=== PATIENT | male | born 1990 | race Two or more races ===

== ENCOUNTER 2020-09-21 12:47 | Outpatient (REF) | payer OTHER, SELFPAY ==
[2020-09-21 13:49] LABS: MANUAL DIFF FLAG NO
[2020-09-21 13:54] LABS: Basophils Percent Auto 0.5 % (0-2); Eosinophils Absolute Auto 0.1 X10*3/uL (0.0-0.4); Eosinophils Percent Auto 0.6 % (0-4); Hemoglobin 14.8 g/dl (14.0-18.0); Imm Gran Abs Auto 0.03 X10*3/uL (0.00-0.03); Imm Gran Pct Auto 0.3 % (0.0-0.4); Lymphocytes Absolute Auto 1.5 X10*3/uL (1.2-4.9); Lymphocytes Percent Auto 17.2 % (20-40); Mean Corpuscular HGB Conc 32.2 g/dl (31.0-36.0); Mean Corpuscular Hemoglobin 27.2 pg (27.0-33.0); Mean Corpuscular Volume 84.6 fL (80-98); Mean Platelet Volume 10.3 fL (9.4-12.4); Monocytes Absolute Auto 0.4 X10*3/uL (0.1-1.2); Neutrophils Absolute Auto 6.8 X10*3/uL (2.0-8.3); Neutrophils Percent Auto 76.4 % (45-73); Platelet Count 318 X10*3/uL (160-400); Red Blood Count 5.44 X10*6/uL (4.60-5.80); White Blood Count 8.8 X10*3/uL (4.8-10.8)
[2020-09-21 14:19] LABS: Alanine Aminotransferase 24 U/L (0-40); Albumin Level 4.5 g/dL (3.5-5.0); Alkaline Phosphatase 84 U/L (39-117); Amylase 37 U/L (28-100); Anion Gap 11 (12-20); Aspartate Amino Transferase 18 U/L (5-37); Bilirubin Total 0.4 mg/dL (0.0-1.0); Blood Urea Nitrogen 10 mg/dL (9-16); Calcium 9.4 mg/dL (8.4-10.2); Carbon Dioxide 26 mmol/L (22-29); Chloride 108 mmol/L (96-108); Estimated Glomerular Filt Rate > 60; Glucose Random 92 mg/dL (60-115); Lipase 24 U/L (8-78); Potassium 4.6 mmol/L (3.3-5.1); Sodium 140 mmol/L (135-145); Total Protein 7.5 g/dL (6.5-8.0)
== END 2020-09-21 12:48 | disposition home or self-care (01) ==
LOC: HO.HMGCLDS 12:47
PROVIDERS: PCP Internal Medicine; Visit Provider Nurse Practitioner Family
DX: R10.13 Epigastric pain (principal)
CPT/HCPCS: 36415; 80053; 82150; 83690; 85025

== ENCOUNTER → 2021-05-06 08:46 | Outpatient (BNVA) | payer OTHER, SELFPAY | PROVIDERS: PCP Internal Medicine; Visit Provider Anesthesiology | DX: M46.1 Sacroiliitis, not elsewhere classified (principal); M47.816 Spondylosis without myelopathy or radiculopathy, lumbar region | CPT/HCPCS: 99202 ==

== ENCOUNTER 2021-05-25 05:56 | Outpatient (REF) | payer OTHER, SELFPAY ==
--- NOTE | ~2021-05-25 | FL_ITS ---
EXAMINATION: XR FLUOROSCOPY WITH IMAGES CLINICAL INFORMATION: Sacroiliitis. COMPARISON: None. TECHNIQUE: Fluoroscopy performed by Lazara Simpson NP Fluoroscopy time: 0.1 minutes DAP: 2 Gycm2 Images: 1 FINDINGS: Image demonstrates needle placement and contrast injection over the right sacroiliac joint. FL/FL guidance in treatment room IMPRESSION: Fluoroscopy guidance for pain management procedure.
== END 2021-05-25 05:57 | disposition home or self-care (01) ==
LOC: HO.RADIR 05:56
PROVIDERS: Visit Provider Anesthesiology
DX: M46.1 Sacroiliitis, not elsewhere classified (principal); M47.816 Spondylosis without myelopathy or radiculopathy, lumbar region
CPT/HCPCS: 27096; J3300; Q9967

== ENCOUNTER 2024-01-25 14:23 | Outpatient (AMB) | payer OTHER, SELFPAY ==
--- NOTE | 2024-01-25 14:25 | A.OFFPC_ITS ---
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 No family history of colon cancer. Complains of occasional abdominal pain. He also has some chest wall pain and shortness breath on occasion. He is obese with a BMI of 34 and was advised to do diet and exercise to reach BMI goal less than 30. Also has some mild major depression and anxiety and I will start him on SSRIs. [facility] Medical History Spondylosis of lumbar joint Sacroiliitis Allergic reaction Lumbar pain Hair loss Class 1 obesity with body mass index (BMI) of 34.0 to 34.9 in adult Surgical History History of appendectomy Family History Mother No problems noted. Father Kidney anomaly, congenital Social History Housing: Apartment Alcohol intake: current Alcohol intake frequency: holidays/special occasions only Alcohol type: beer, wine and hard liquor Patient Tobacco Use Status: Never used Tobacco e-Cigarette/Vaping Use: Never Used Second Hand Smoke Exposure: No service: No Current occupational status: employed Current occupational exposures/hazards: No Cognitive needs: No Hearing needs: No Vision needs: No Questionnaire PHQ-9 Over the last 2 weeks, how often have you been bothered by any of the following problems? 1. Little interest or pleasure in doing things: several days 2. Feeling down, depressed, or hopeless: several days 3. Trouble falling or staying asleep, or sleeping too much: several days 4. Feeling tired or having little energy: nearly every day 5. Poor appetite or overeating: not at all 6. Feeling bad about yourself - or that you are a failure or have let yourself or your family down: several days 7. Trouble concentrating on things, such as reading the newspaper or watching television: not at all 8. Moving or speaking so slowly that other people could have noticed. Or the opposite - being so fidgety or restless that you have been moving around a lot more than usual: not at all 9. Thoughts that you would be better off or of hurting yourself in some way: not at all Total score: 7 Depression Screening Interpretation: Positive Depression Screening Follow-up: Existing condition and Follow-up Visit Requested Depression Screening Done: Yes 06700 - PHQ-9 Billing: Yes Source: Developed by Drs. Misbah Long, Dot Aragon, Duc Milner and colleagues, with an educational reagan from [email or web address]. Thrive Questionnaire Date Thrive assessed: 01/25/24 I am a: Patient What is your living situation today?: I have a steady place to live Within the past 12 months, did the food you bought not last and you didn't have the money to get more?: I choose not to answer this question Within the past 12 months, did you worry whether your food would run out before you got money to buy more?: I choose not to answer this question Do you have trouble paying for medicines?: I choose not to answer this question Do you have trouble getting transportation to medical appointments?: I choose not to answer this question Do you have trouble paying your heating and electricity bill?: I choose not to answer this question Do you have trouble taking care of your child, family member or friend?: No Do you have trouble with day-to-day activities such as bathing, preparing meals, shopping, managing finances, etc.?: No Are you currently unemployed and looking for a job?: No Are you interested in more education?: Yes Please select the resources that you would like help with: None Currently or been in a relationship where the following occur: I choose not to answer THRIVE Score: 0 AUDIT C Alcohol Use Questionnaire (AUDIT-C) 1. How often do you have a drink containing alcohol?: 2-4 times a month 2. How many drinks containing alcohol do you have on a typical day when you are drinking?: 3 or 4 3. How often do you have six or more drinks on one occasion?: Never Total Score: 3 KRISTOFER-7 AMB Questionnaire KRISTOFER-7 Date KRISTOFER - 7 assessed: 01/25/24 Feeling nervous, anxious, or on edge: 2 = More than half the days Not being able to stop or control worryin = More than half the days Worrying too much about different things: 2 = More than half the days Trouble relaxin = More than half the days Being so restless that it is hard to sit still: 0 = Not at all Becoming easily annoyed or irritable: 0 = Not at all Feeling afraid as if something awful might happen: 0 = Not at all Total KRISTOFER-7 score (0-4 normal; 5-9 mild; 10-14 moderate; 15-21 severe): 8 Source: Developed by Drs. Misbah Long, Dot Aragon, Duc Milner and colleagues, with an educational reagan from [email or web address]. KRISTOFER-7 Assessment Billing KRISTOFER-7 Assessment Tool: KRISTOFER-7 Assessment 78103 Review of Systems Const All systems reviewed & are unremarkable except as noted in HPI and below Card Reports chest pain at rest, Denies chest pain with activity, Denies edema, Denies irregular heart rhythm, Denies claudication, Reports dyspnea, Denies dyspnea on exertion, Denies orthopnea, Denies paroxysmal nocturnal dyspnea and Denies slow heart rate Resp Denies cough, Reports dyspnea and Denies dyspnea on exertion GI Reports abdominal pain Musc Reports back pain and Reports arthralgias Physical exam (Primary Care) Vital Signs: Last Vital Signs BP 126/82 01/25/24 14:27 BMI result Body Mass Index 34.0 BMI Assessment/Plan discussion: High BMI High, discussed plan: lifestyle, weight reduction, dietary and physical activity Tobacco/Smoking Status: Tobacco use Status Tobacco use date assessed 08/15/22 01/25/24 14:27 Patient Tobacco Use Status Never used Tobacco 01/25/24 14:27 Tobacco use type 02/24/21 14:32 e-Cigarette/Vaping Use Never Used 01/25/24 14:27 PHQ-9: PHQ-9 Score PHQ-9: Total score 7 10/31/24 14:57 Depression Screening Interpretation: Positive Depression Screening Follow-up: Existing condition and Follow-up Visit Requested Thrive Assessment: Date of Thrive Assessment Date Thrive assessed 01/25/24 01/25/24 14:27 Currently or been in a relationship where the following occur: I choose not to answer HENNM Head: Yes normal to inspection, Yes normocephalic and Yes atraumatic Ears: external ears normal Eyes General: appearance normal, both eyes and all related structures Eyelids: Yes eyelids normal Conjunctivae: conjunctivae normal Neck Neck: Yes normal visual inspection and Yes supple Resp Effort & Inspection: normal respiratory effort Auscultation: clear to auscultation bilaterally Cardio Jugular venous distension: no JVD Rate: regular rate Rhythm: regular rhythm Heart sounds: S1 normal heart sound present and S2 normal heart sound present GI Inspection: Yes normal to inspection Palpation (GI): Soft to palpation and nontender Auscultation: normal bowel sounds Skin General skin exam: no rashes or lesions noted Neuro General: no focal motor deficits Extrem General: Yes full ROM Psych Appearance: grossly normal Office Procedures Flu Questionnaire Does the patient have a severe egg allergy?: No Does the patient have severe life threatening allergies?: No Does the patient have a fever or illness today?: No Has the patient ever had Guillain-Palmyra Syndrome?: No Has the patient ever had any past reaction to a flu shot?: No Immunizations Fluarix Triv [id number] (PF) 45 mcg (15 mcg x 3)/0.5 mL IM syringe Performing Provider: Thu Montano MD [facility] Administered by: MADI Fall on 01/25/24 14:56 Dose Route Admin Location Dispensed Lot Number Expiration Date NDC Sales Compensation Analyst 0.5 mL IM Left Deltoid 0.5 mL [id number] 09/23/24 88917-575-12 [email or web address] VIS Given Date VIS Provided VIS Publication Date 01/25/24 Single Vaccine 20 Eligibility Eligibility Date Funding Source Not [facility] Eligible 01/25/24 Private Coding Level of Care Code Est Pt Level 4 (65873) Est Pt Prev Care 18-39y(13144) Diagnoses Physical exam Z00.00 Mild major depression F32.0 Anxiety F41.9 Generalized abdominal pain R10.84 Abdominal location: generalized Dyspnea R06.00 Additional Codes KRISTOFER-7 Assessment Billing - KRISTOFER-7 Assessment Tool: KRISTOFER-7 Assessment 40780 ([id number]) Time Spent (min) 40 Assessment & Plan Assessment & Plan (1) Physical exam: Code(s): Z00.00 - Encounter for general adult medical examination without abnormal findings Category: Medical Plan: Repeat in a year. (2) Mild major depression: Code(s): F32.0 - Major depressive disorder, single episode, mild Category: Medical Plan: Start SSRIs. (3) Anxiety: Code(s): F41.9 - Anxiety disorder, unspecified Category: Medical Plan: Start SSRIs. (4) Abdominal pain: Code(s): R10.9 - Unspecified abdominal pain Category: Medical Qualifiers: Abdominal location: generalized Qualified Code(s): R10.84 - Generalized abdominal pain Plan: Ultrasound of the abdomen ordered. (5) Dyspnea: Code(s): R06.00 - Dyspnea, unspecified Category: Medical Plan: Chest x-ray ordered. Orders: Orders Complete Blood Count Auto Diff Today E66.9 - Obesity, unspecified, Z68.34 - Body mass index [BMI] 34.0-34.9, adult Thyroid Stimulating Hormone Today E66.9 - Obesity, unspecified, Z68.34 - Body mass index [BMI] 34.0-34.9, adult HIV Ab/Ag Today Z11.4 - Encounter for screening for human immunodeficiency virus [HIV] CT NG by PCR Today Z11.3 - Encounter for screening for infections with a predominantly sexual mode of transmission ECG 12 lead EKG Today R07.89 - Other chest pain Influenza 5194-1301 Immunization Today Z23 - Encounter for immunization US abdomen comp w elastography Today R10.9 - Unspecified abdominal pain Comprehensive [place]. Panel Fast Today Z00.00 - Encounter for general adult medical examination without abnormal findings Syphilis Screen Today Z11.3 - Encounter for screening for infections with a predominantly sexual mode of transmission Hepatitis C Antibody Today Z11.3 - Encounter for screening for infections with a predominantly sexual mode of transmission XR chest 2V Today R06.00 - Dyspnea, unspecified Medications: New sertraline 25 mg PO DAILY 90 tabs 1RF 90 days F32.0 - Major depressive disorder, single episode, mild, F41.9 - Anxiety disorder, unspecified
[2024-01-25 14:27] VITALS: BP 126/82; BMI 34.0
== END 2024-01-25 14:58 | disposition home or self-care (01) ==
LOC: HO.HMCH 14:24
PROVIDERS: PCP Internal Medicine; Visit Provider Internal Medicine
DX: Z00.00 Encounter for general adult medical examination without abnormal findings (principal); F32.0 Major depressive disorder, single episode, mild; F41.9 Anxiety disorder, unspecified; R10.84 Generalized abdominal pain; R06.00 Dyspnea, unspecified

== ENCOUNTER → 2024-01-25 14:23 | Outpatient (BNVA) | payer OTHER, SELFPAY | PROVIDERS: PCP Internal Medicine; Visit Provider Internal Medicine | DX: Z00.01 Encounter for general adult medical examination with abnormal findings (principal); Z23 Encounter for immunization; F32.0 Major depressive disorder, single episode, mild; F41.9 Anxiety disorder, unspecified; R10.84 Generalized abdominal pain; R06.00 Dyspnea, unspecified | CPT/HCPCS: 90471; 90656; 96127; 99212; 99395 ==

== ENCOUNTER 2024-02-09 08:55 | Outpatient (REF) | payer OTHER, SELFPAY ==
--- NOTE | ~2024-02-09 | US_ITS ---
EXAMINATION: US COMPLETE ABDOMEN WITH LIVER ELASTOGRAPHY CLINICAL INFORMATION: Unspecified abdominal pain. COMPARISON: Abdomen ultrasound 02/20/2018. No prior elastography. TECHNIQUE: Real-time imaging of the abdominal viscera. Noninvasive ultrasound liver fibrosis assessment is performed using Rachna ElastPQ point quantification shear wave elastography (pSWE) with a C5-2 MHz transducer. Multiple elastography samples are obtained. 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 FINDINGS: PANCREAS: The visualized pancreatic head and body are normal in appearance. The remainder of the pancreas is obscured from visualization by the overlying bowel gas. ABDOMINAL AORTA: No aortic aneurysm is seen. INFERIOR VENA CAVA: Visualized portions are normal. LIVER: Liver demonstrates diffusely increased and coarsened parenchymal echogenicity. Hepatic contour appears smooth. No focal suspicious lesion. The right lobe measures 17.2 cm in length. The left lobe measures 11.2 cm in length. Portal flow is hepatopedal. Shear wave liver elastography median stiffness is 2.0 m/s (reference: normal median stiffness is 1.3 m/s or less). IQR/median stiffness to assess sampling precision is 0.15 (reference: good quality data set is IQR/median stiffness of 0.15 or less). GALLBLADDER: Gallbladder demonstrates intraluminal mobile gallstone measuring 2.2 x 1.8 cm. No gallbladder wall thickening or pericholecystic fluid collection. Negative sonographic Alvarado's sign. COMMON BILE DUCT: Normal in caliber measuring 0.6 cm in diameter. RIGHT KIDNEY: No hydronephrosis. No renal calculi or focal parenchymal lesions. The kidney measures 11.0 cm in maximum dimension. LEFT KIDNEY: No hydronephrosis. No renal calculi or focal parenchymal lesions. The kidney measures 11.9 cm in maximum dimension. SPLEEN: Unremarkable. The spleen measures 10.6 cm in maximum dimension. FREE FLUID: None seen. US/US abdomen comp w elastography IMPRESSION: 1. Diffusely increased and coarsened hepatic echogenicity consistent with steatosis and/or hepatocellular disease. No focal lesions seen. 2. Liver elastography: Measuremensts are consistent with compensated advanced chronic liver disease. 3. Cholelithiasis. No evidence of gallbladder inflammation. 4. Remainder of the exam is normal. REFERENCE: Society of Radiologists in Ultrasound Liver Stiffness Thresholds (2020): LIVER STIFFNESS THRESHOLDS: *Liver Stiffness equal or less than 1.3 m/s: High probability of being normal. *Liver Stiffness less than 1.7 m/s: In the absence of other known clinical signs, rules out compensated advanced chronic liver disease. *Liver Stiffness 1.7-2.1 m/s: Suggestive of compensated advanced chronic liver disease but need further test for confirmation. *Liver Stiffness over 2.1 m/s: Rules in compensated advanced chronic liver disease. *Liver Stiffness over 2.4 m/s: Suggestive of clinically significant portal hypertension. QUALITY OF DATA SET: *IQR/Median value equal or less than 0.15 implies a quality data set. *IQR/Median value over 0.15 implies a poor quality data set. SIGNIFICANT CHANGE FROM PRIOR EXAM: Significant change if liver stiffness measurement is 10% or greater from prior exam. OTHER CONSIDERATIONS: The stage of liver fibrosis may be overestimated in the setting of acute hepatitis, liver inflammation, elevated liver function tests, hepatic vascular congestion, obstructive cholestasis, non-fasting state, and infiltrative diseases such as amyloidosis and lymphoma. In some patients with NAFLD, the liver stiffness thresholds for compensated advanced chronic liver disease may be lower. In causes other than viral hepatitis and NAFLD, liver stiffness thresholds are not well established. Electronically signed by: Jairo Dumont MD 04/16/2024 10:17 AM [facility]
--- NOTE | ~2024-02-09 | XR_ITS ---
EXAMINATION: XR CHEST CLINICAL INFORMATION: Dyspnea, unspecified R06.00. COMPARISON: None available TECHNIQUE: 3 views of the chest were obtained. FINDINGS: The lungs are clear. The cardiomediastinal silhouette is normal in size. There is no pleural effusion or pneumothorax. No acute osseous abnormality. XR/XR chest 2V IMPRESSION: No acute cardiopulmonary findings. Electronically signed by: Juan Wang MD 04/09/2024 08:46 AM [facility]
== END 2024-02-09 08:56 | disposition home or self-care (01) ==
LOC: HO.US 08:55
PROVIDERS: PCP Internal Medicine; Visit Provider Internal Medicine
DX: R10.9 Unspecified abdominal pain (principal); R06.00 Dyspnea, unspecified
CPT/HCPCS: 71046; 76700; 76981

== ENCOUNTER → 2024-02-09 08:58 | Outpatient (BNV) | payer OTHER, SELFPAY | PROVIDERS: PCP Internal Medicine; Visit Provider Radiology Diagnostic Radiology | DX: R10.9 Unspecified abdominal pain (principal) | CPT/HCPCS: 76700 ==

== ENCOUNTER 2024-12-19 12:17 | Outpatient (REF) | payer OTHER, SELFPAY ==
[2024-12-20 12:45] LABS: Chlamydia pneumoniae PCR Not Detected (Not Detect.); Coronavirus 229E PCR Not Detected (Not Detect.); Coronavirus HKU1 PCR Not Detected (Not Detect.); Coronavirus NL63 PCR Not Detected (Not Detect.); Coronavirus OC43 PCR Not Detected (Not Detect.); RSV PCR Not Detected (Not Detect.); Rhino/Enterovirus PCR Not Detected (Not Detect.)
[2024-12-20 12:56] LABS: Influenza A H1 PCR Not Detected (Not Detect.); Influenza A H1-2009 PCR Not Detected (Not Detect.); Influenza A H3 PCR Not Detected (Not Detect.); SARS-CoV-2 PCR Detected (Not Detect.)
== END 2024-12-19 12:18 | disposition home or self-care (01) ==
LOC: HO.LAB 12:17
PROVIDERS: PCP Internal Medicine; Visit Provider Nurse Practitioner Family
DX: J06.9 Acute upper respiratory infection, unspecified (principal)
CPT/HCPCS: 87633; 99212

== ENCOUNTER 2024-12-19 12:17 | Outpatient (AMB) | payer OTHER, SELFPAY ==
--- NOTE | 2024-12-19 12:18 | AM.OFFWIN_ITS ---
Intake Vital Signs 12/19/24 12:19 Height 5 ft 9 in Weight 232 lb BMI 34.3 BP 122/86 Blood Pressure Location Rt brachial Position Sitting Pulse 81 Pulse Source Pulse Oximeter Temp 98.6 F Temp Source Oral Pulse Oximetry (%) 99 Oxygen Delivery Method Room Air Intake Visit Reasons: EP covid symptoms/ covid test Intake Note: pt presents with fever, body aches, coughing for 1 day Patient Tobacco Use Status: Never used Tobacco Allergies No Known Allergies Allergy (Verified 12/19/24 12:19) Do you need a note to return to daycare/school/sports/work: Yes Return to daycare/school/sports/work/other note: work HPI HPI Comments History of Present Illness Details 34 y/o Male patient who presents to the walk in clinic with c/o fever, body aches, and coughing since Yesterday. Pt Tested Positive for COVID Infection with Home Test, now asking for work Note. Denies Headaches, CP, SOB or wheezing. [facility] Medical History (Updated 12/19/24 @ 12:57 by Jeanna Osei NP) Acute respiratory disease Spondylosis of lumbar joint Sacroiliitis Allergic reaction Lumbar pain Hair loss Class 1 obesity with body mass index (BMI) of 34.0 to 34.9 in adult Surgical History History of appendectomy Family History Mother No problems noted. Father Kidney anomaly, congenital Social History Housing: Apartment Alcohol intake: current Alcohol intake frequency: holidays/special occasions only Alcohol type: beer, wine and hard liquor Patient Tobacco Use Status: Never used Tobacco e-Cigarette/Vaping Use: Never Used Second Hand Smoke Exposure: No service: No Current occupational status: employed Current occupational exposures/hazards: No Cognitive needs: No Hearing needs: No Vision needs: No Review of Systems Const All systems reviewed & are unremarkable except as noted in HPI and below Physical Exam Vital Signs: Last Vital Signs Temp 98.6 F 12/19/24 12:19 Pulse 81 12/19/24 12:19 BP 122/86 12/19/24 12:19 Pulse Ox 99 12/19/24 12:19 Oxygen Delivery Method Room Air 12/19/24 12:19 BMI result Body Mass Index 34.3 Const General: no acute distress Nutritional Appearance: overweight Orientation/consciousness: patient oriented x3 HEENT Head: Yes normocephalic Ears: external ears normal and TM's normal bilaterally General nose exam: Normal external nose present and No nasal discharge present Face and sinus: Yes sinuses nontender Mouth: moist mucous membranes Throat: Yes uvula midline Resp Effort & Inspection: normal respiratory effort, able to speak in complete sentences, no audible wheezes and no cough Auscultation: clear to auscultation bilaterally, no crackles, no rales, no rhonchi and no wheezes Cardio Heart sounds: S1 normal heart sound present and S2 normal heart sound present Neuro General: patient oriented x3, gait normal and moves all extremities Psych Speech and movement: Normal speech and movement present Assessment & Plan Assessment & Plan (1) Acute respiratory disease: Code(s): J06.9 - Acute upper respiratory infection, unspecified Plan: Ordered Resp Patho Panel. Acetaminophen for fever and pain relief. Rest and hydrate well with warm fluids. Work Note for 5 days given to Patient. Orders: Orders Resp Pathogen Panel - [facility] Today J06.9 - Acute upper respiratory infection, unspecified Coding Level of Care Code Est Pt Level 4 (84511) Diagnoses Acute respiratory disease J06.9 Time Spent (min) 20
[2024-12-19 12:19] VITALS: BP 122/86; PULSE 81; TEMP 37; O2SAT 99; BMI 34.3
--- OUTSIDE RECORDS SUMMARY | 2024-12-19 17:12 | XMS_ITS | Clinical Summary ---
Author Organization [facility] Address [address] [place] [address] Care Team Providers Care Earth Science Professor Name Role Phone MeryRajat schmitt SULEMAN Primary Care Provider [phone] Source Comments PLEASE NOTE, if this patient is a minor, it may be UNLAWFUL to discuss sensitive information that is contained in these records (such as FAMILY PLANNING, MENTAL HEALTH or SUBSTANCE ABUSE) with the minor patient's parent or other person without the patient's specific authorization.[facility] Allergies No known active allergies Medications ibuprofen (ADVIL,MOTRIN) 400 mg tabletIndicati ons:Chronic midline low back pain without sciatica Take 1 Tab by mouth 4 (four) times daily as needed for pain 90 Tab 3 8 Active alum-mag hydroxide-carlos th (MAALOX PLUS) 400-400-40 mg/5 mL suspensionIndi cations:Epigas tric pain Take 10 mL by mouth every 6 (six) hours as needed for indigestion 355 mL 1 8 Active clotrimazole-b etamethasone (LOTRISONE) 1-0.05 % creamIndicatio ns:Pruritic rash Apply topically 2 (two) times daily 45 g 3 8 Active miscellaneous medical supply miscIndication s:Chronic midline low back pain without sciatica by miscellaneous route once daily Dx: Chronic midline low back pain, disp# one waist binder. 1 Each 8 Active ibuprofen 600 mg tablet Take 1 Tablet by mouth 4 (four) times daily as needed for pain 20 Tablet 2 Active amoxicillin (AMOXIL) 500 mg capsule Take 1 Capsule by mouth 3 (three) times daily 21 Capsule 03/10/202 2 Active Active Problems Problem Noted Date Diagnosed Date Epigastric abdominal pain 11/24/2014 Family History Medical History Relation Name Comments Kidney disease Father Depression Mother Relation Name Status Comments Father Alive Mother Alive Social History Tobacco Use Types Packs/Day Years Used Date Smoking Tobacco: Never Smokeless Tobacco: Never Alcohol Use Standard Drinks/Week Comments Yes 4 (1 standard drink = 0.6 oz pur e alcohol) socially Social Connections Answer Date Recorded Social Connections and Isolation 0 06/03/2021 Financial Resource Strain Answer Date R ecorded Financial Resource Strain 0 2021 Stress Answer Date Recorded Stress 0 06/03/2021 Physical Activity Answer Date Recorded Physical Activity 0 06/03/2021 Food Insecurity Answer Date Recorded Food 0 06/03/2021 Transportation Needs Answer Date Record ed Transportation 0 06/03/2021 Housing Stability Answer Date Recorded Housing 0 06/03/2021 Safety and Environment Answer Date Perez rded Safety 0 06/03/2021 Utilities Answer Date Recorded Utilities 0 06/03/2021 Employment Answer Date Recorded Employment 0 06/03/2021 Sex and Gender Information Value Date Recorded Sex Assigned at Male 07/12/2017 11:06 AM PDT Legal Sex Male 7:54 AM PDT Gender Identity Male 07/12/2017 11:06 AM PDT Sexual Orientation Straight 07/12/2017 11 :06 AM PDT Last Filed Vital Signs Vital Sign Reading Time Taken Comments Blood Pressure 122/78 07/12/2017 9:58 AM EDT Pulse 71 07/12/2017 9:58 AM EDT Temperature 36.7 C (98.1 F) 07/12/2017 9:58 AM EDT Respiratory Rate 16 07/12/2017 9:58 AM EDT Oxygen Saturation 98% 07/12/2017 9:58 AM EDT Inhaled Oxygen Concentration - - Weight 89.4 kg (197 lb) 07/12/2017 9:58 AM EDT Height 176 cm (5' 9.29 ) 07/12/2017 9:58 AM EDT Body Mass Index 28.85 07/12/2017 9:58 AM EDT Plan of Treatment Not on file Insurance [employer] [facility] [employer] [facility] Care Teams Earth Science Professor Relationship Specialty Start Date End Date Rajat Eugene NP [address] [place] [id number] PCP - General 02/01/18
== END 2024-12-19 12:57 | disposition home or self-care (01) ==
PROVIDERS: PCP Internal Medicine; Visit Provider Nurse Practitioner Family
DX: J06.9 Acute upper respiratory infection, unspecified (principal)